=== PATIENT | male | born 1980 | race Two or more races ===

== ENCOUNTER 2025-03-02 21:00 | Emergency (ER) | payer OTHER ==
[~2025-03-02] VITALS: Ht 167.6 cm; Wt 86.4 kg
[~2025-03-02 21:00] MED LIST: ACET650S24 PR; AMLO-258 PO; ASPI-1450 PO; FAMO20 PO; MAGN-169 PO
[2025-03-02] MEDS ORDERED: LIDO-57 TP (23:12)
[2025-03-02] MEDS ORDERED: CYCL-448 PO (23:12)
[2025-03-02] MEDS: KETOROLAC TROMETHAMINE 30 MG/ML VIAL IM ONE (23:49)
[2025-03-03 00:20] VITALS: BP 131/85; PULSE 82; RESP 17; TEMP 97.3; O2SAT 99
== END 2025-03-03 01:58 | disposition home or self-care (01) ==
LOC: EMS 21:12
DX: M46.1 Sacroiliitis, not elsewhere classified (principal); I10 Essential (primary) hypertension; Z79.899 Other long term (current) drug therapy; Z79.82 Long term (current) use of aspirin; W19.XXXA Unspecified fall, initial encounter; Y93.89 Activity, other specified; Y92.89 Other specified places as the place of occurrence of the external cause; Y99.8 Other external cause status
CPT/HCPCS: 99283; 96372; J1885